=== PATIENT | female | born 1950 | race Caucasian/White ===

== ENCOUNTER 2022-10-26 09:36 | Outpatient (CLI) | payer MEDICARE, BC | END 2022-10-26 09:37 | disposition home or self-care (01) | LOC: CSHULT 09:36 | PROVIDERS: ATTEND Internal Medicine Gastroenterology | DX: R10.11 Right upper quadrant pain (principal); R10.13 Epigastric pain; R14.0 Abdominal distension (gaseous); K31.84 Gastroparesis; K21.9 Gastro-esophageal reflux disease without esophagitis; K76.0 Fatty (change of) liver, not elsewhere classified | CPT/HCPCS: 76705 ==